=== PATIENT | female | born 1945 | race Caucasian/White ===

== ENCOUNTER → 2016-11-28 | Outpatient (CLI) | payer MEDICARE ==
--- NOTE | 2016-11-28 17:38 | KCIC ---
DATE: 11/28/2016. EXAM: MAMMO YOSELYN SCREENING BILATERAL. HISTORY: Routine mammographic screening. COMPARISON: 11/24/2015, 11/10/2014, 10/25/2013. This study was interpreted with the benefit of Computerized Aided Detection (CAD). FINDINGS: The breast parenchyma is primarily fatty replaced. Breast parenchyma level density A.. There are no suspicious masses, microcalcifications or architectural distortion. Scattered calcifications are benign. The parenchymal pattern is stable. BI-RADS CATEGORY: 2 BENIGN FINDING(S). RECOMMENDED FOLLOW-UP: 12M 12 MONTH FOLLOW-UP. PQRS compliance statement: Patient information was entered into a reminder system with a target due date 12/29/2017 for the next mammogram. Mammography is a sensitive method for finding small breast cancers, but it does not detect them all and is not a substitute for careful clinical examination. A negative mammogram does not negate a clinically suspicious finding and should not result in delay in biopsying a clinically suspicious abnormality. "Our facility is accredited by the [employer] Mammography Program."
== END | disposition home or self-care (01) ==
LOC: KCIC MAMMO 15:52
PROVIDERS: ATTEND Family Medicine
DX: Z12.31 Encounter for screening mammogram for malignant neoplasm of breast (principal)
CPT/HCPCS: 77063; G0202; 77067

== ENCOUNTER → 2017-12-01 | Outpatient (CLI) | payer MEDICARE ==
--- NOTE | 2017-12-02 14:17 | KCIC ---
3d digital tomography Bilateral History: Routine screening Technique: Bilateral 3d digital tomographic views were obtained with [employer] Karen and reviewed on a [employer] workstation. In addition, CAD - computer aided detection was utilized. Comparison: November 28, 2016. Findings: Breast Tissue Density B : The breast tissue is composed of mixed fatty and fibroglandular tissue. There are no suspicious masses, microcalcifications or areas of architectural distortion. Impression: No suspicious findings. BI-RADS Category 1: Negative. Normal interval followup. The patient will receive a letter with the results in the mail. A mammogram does not have 100% sensitivity and therefore a negative imaging study should not delay further work up of a suspicious abnormality. Patient information is entered into the [facility] reminder system using Echolocation with a target due date for the next screening mammogram. The patient will receive a reminder. "Our facility is accredited by the [employer] Mammography Program." Electronically signed by: Josh Nye III, MD (12/02/2017 2:14 PM) [facility]
== END | disposition home or self-care (01) ==
LOC: KCIC MAMMO 14:22
PROVIDERS: ATTEND Family Medicine
DX: Z12.31 Encounter for screening mammogram for malignant neoplasm of breast (principal)
CPT/HCPCS: 77063; 77067

== ENCOUNTER → 2018-03-12 | Outpatient (CLI) | payer MEDICARE ==
[~2018-03-12] MED LIST: ASCO500C9 PO; ASPI-630 PO; B CO1TAB10 PO; CALC-31 PO; CHOL10003 PO; CINN500C2 PO; HYDR12.58 PO; LEVO75TA PO; MAGN400C PO; MULT1TAB52 PO; NIAC500T PO; OMEG1CAP38 PO; OMEP20CA10 PO; PARO40TA3 PO; TRAM50TA PO
[2018-03-12 13:53] LABS: BASO # 0.1 x10^3/uL (0.0-0.2); BASO % 1 % (0-3); EOS # 0.2 x10^3/uL (0.0-0.7); EOS % 3 % (0-3); HEMATOCRIT 34.1 % (36.0-47.0); HEMOGLOBIN 11.1 g/dL (12.0-15.5); LYMPH # 1.5 x10^3/uL (1.0-4.8); LYMPH % 18 % (24-48); MEAN CORPUSCULAR HEMOGLOBIN 24 pg (25-35); MEAN CORPUSCULAR HGB CONC 33 g/dL (31-37); MEAN CORPUSCULAR VOLUME 75 fL (79-100); MONO # 0.9 x10^3/uL (0.0-1.1); MONO % 11 % (0-9); NEUT # 5.7 x10^3uL (1.8-7.7); NEUT % 67 % (31-73); PLATELET COUNT 313 x10^3/uL (140-400); RED BLOOD COUNT 4.54 x10^6/uL (3.50-5.40); RED CELL DISTRIBUTION WIDTH 16.7 % (11.5-14.5); WHITE BLOOD COUNT 8.4 x10^3/uL (4.0-11.0)
[2018-03-12 14:07] LABS: ALBUMIN 3.7 g/dL (3.4-5.0); GFR 54.7; POTASSIUM 4.2 mmol/L (3.5-5.1)
--- NOTE | 2018-03-12 16:39 | RAD ---
Chest radiograph 03/12/2018 1:59 PM INDICATION: Preoperative evaluation for hernia surgery. COMPARISON: None available TECHNIQUE: Frontal and lateral views of the chest are provided. FINDINGS: The cardiomediastinal silhouette is within normal limits. There are no pleural effusions. There is no pulmonary vascular congestion. There is no pneumothorax. The lungs are clear. No significant osseous abnormality is identified. Cholecystectomy clips are identified in the right upper quadrant of the abdomen. IMPRESSION: No acute cardiopulmonary process. Electronically signed by: Jana Resendez MD (03/12/2018 4:35 PM) [facility]
--- NOTE | 2018-03-13 11:56 | NUR ---
FAXED PRE - OP TEST REPORTS TO 'S OFFICE FOR REVIEW AND RECEIVED TRANSMITTAL CONFIRMATION.
== END | disposition home or self-care (01) ==
LOC: SURGPAT 13:18
PROVIDERS: ATTEND Surgery
DX: Z01.818 Encounter for other preprocedural examination (principal); K43.9 Ventral hernia without obstruction or gangrene; I10 Essential (primary) hypertension
CPT/HCPCS: 36415; 71046; 80048; 82040; 85025

== ENCOUNTER 2018-03-16 09:42 | Day surgery (SDC) | payer MEDICARE ==
[~2018-03-16] VITALS: Ht 154.9 cm; Wt 73.9 kg
[~2018-03-16 09:42] MED LIST changes: +DEXAMETHASONE SOD PHOS 20 MG/5 ML VIAL. ONE; +IV RINGERS,LACTATED 1000ML 1,000 ML IV SCH; +LIDOCAINE 1% PF 2 ML VIAL. ID PRN; +LIDOCAINE 2% PF Vial for OR 5 ML VIAL. ONE; -MAGN400C PO; -OMEP20CA10 PO; +OMEP20CA9 PO; +ONDANSETRON PF 4 MG/2 ML VIAL. IV PRN; +ONDANSETRON PF 4 MG/2 ML VIAL. ONE; +PROCHLORPERAZINE 10 MG/2 ML VIAL. IV PRN; +PROPOFOL 20 ML IV ONE; +ROCURONIUM 50 MG/5 ML VIAL. ONE; -TRAM50TA PO; +fentaNYL PF VIAL 100 MCG/2 ML VIAL IV PRN; +fentaNYL PF VIAL 100 MCG/2 ML VIAL ONE
[2018-03-16] MEDS ORDERED: SUCCINYLCHOLINE 200 MG/10 ML VIAL. ONE (11:12)
[2018-03-16] MEDS ORDERED: NEOSTIGMINE 10 MG/10 ML VIAL. ONE ×2 (11:20→13:03)
[2018-03-16] MEDS ORDERED: BUPIVAC MPF-EPI 0.5%-1:200000 30 ML VIAL. ONE (11:46)
[2018-03-16] MEDS ORDERED: GLYCOPYRROLATE 1 MG/5 ML VIAL. ONE ×2 (12:19→12:20)
[2018-03-16] MEDS ORDERED: SEVOFLURANE 61 TO 120 MINUTES. IH ONE (13:20)
[2018-03-16] MEDS ORDERED: fentaNYL PF VIAL 100 MCG/2 ML VIAL ONE (13:31)
--- NOTE | 2018-03-16 13:42 | DISCH ---
DISCHARGE INSTRUCTIONS Condition on Discharge Condition on Discharge: Stable Activity After Discharge Activity Instructions for Disc: Activity as tolerated, Avoid exertion Lifting Instructions after Dis: No heavy lifting Driving Instructions after Dis: Do not drive (3-4 days) Diet after Discharge Diet after Discharge: Regular Wound Incision Care Wound/Incision Care: Ice to area for comfort Other wound/incision instructi: june shower Friday Follow-Up Follow up with: Julius next week LUIS A ROSA MD Mar 16, 2018 13:42
[2018-03-16] MEDS ORDERED: MEPERIDINE PF 25 MG/ML VIAL. ONE (14:03)
[2018-03-16] MEDS: MEPERIDINE PF 25 MG/ML VIAL. IV PRN ×2 (14:07→14:20)
[2018-03-16] MEDS: fentaNYL PF VIAL 100 MCG/2 ML VIAL IV PRN ×2 (14:31→15:33)
[2018-03-16] MEDS ORDERED: TRAM50TA PO (15:23)
[2018-03-16 15:45] VITALS: BP 158/71
--- NOTE | 2018-03-16 16:44 | PDOC ---
BRIEF OPERATIVE NOTE Date: Mar 16, 2018 Pre-Op Diagnosis ventral incisional hernia Post-Op Diagnosis same Procedure Performed primary repair, TIFFANIE Surgeon Julius Wire Mill Operator Carmen Weber Anesthesia Type: General Blood Loss 50cc IV Fluid 1200cc Findings ventral hernia Complications none Operative Note # [id number] LUIS A ROSA MD Mar 16, 2018 16:43
--- NOTE | 2018-03-16 17:12 | RAD ---
Supine abdomen. HISTORY: Hernia repair, postop Supine view was taken of the abdomen. There are clips from a cholecystectomy. Bowel pattern is normal. An opaque foreign body is not identified on the image. Mild hypertrophic change in the lumbar spine. There is possible at extraperitoneal gas in the pelvis which could related to surgery. IMPRESSION: 1. No bowel obstruction or acute finding in the abdomen. 2. No opaque foreign body noted. Electronically signed by: Keyon Sheets MD (03/16/2018 5:08 PM) [facility]
--- NOTE | 2018-03-16 18:00 | OP ---
DATE OF SURGERY: 03/16/2018 PREOPERATIVE DIAGNOSIS: Recurrent ventral hernia. POSTOPERATIVE DIAGNOSIS: Recurrent ventral hernia. PROCEDURE: Primary repair and lysis of adhesions. SURGEON: Rl Rosa MD DYE TUB TENDER: Carmen Weber. ANESTHESIA: General endotracheal. ESTIMATED BLOOD LOSS: 50. INTRAVENOUS FLUID: 1200. DESCRIPTION OF PROCEDURE: The patient brought to the operating suite, given a general endotracheal anesthetic and the abdomen prepped and draped in usual sterile fashion. The old midline incisional scar was excised along with the umbilicus. The anterior wall fascia was opened in the midline encountering previously placed individual Prolene suture material. An area of defect in the right upper abdomen was identified, contents reduced, area repaired with 0 Vicryl suture. When a correct sponge count had been obtained, the midline incision was closed in running fashion with a #1 looped PDS suture tied in the middle. Subcutaneous approximated with 3-0 Vicryl, skin closed with subcuticular 4-0 Monocryl. Sterile dressing applied. Postoperative foreign body film negative for unexplained foreign body. The patient awakened from her anesthetic and taken to the recovery room in satisfactory condition. RL ROSA MD DR: PREET/astrid JOB#: [id number] / [id number]
[2018-03-16] MEDS ORDERED: NIACIN ER 500 MG TABLET.ER PO SCH (21:00)
[2018-03-17] MEDS ORDERED: LEVOTHYROXINE 75 MCG TABLET PO SCH (07:00)
[2018-03-17] MEDS ORDERED: PANTOPRAZOLE 40 MG TABLET.DR. PO SCH (07:30)
[2018-03-17] MEDS ORDERED: ASPIRIN CHEWABLE 81 MG TABLET. PO SCH (09:00)
[2018-03-17] MEDS ORDERED: ASCORBIC ACID 500 MG TABLET PO SCH (09:00)
[2018-03-17] MEDS ORDERED: OMEGA-3 FATTY ACIDS/FISH OIL 1,000 MG CAPSULE. PO SCH (09:00)
[2018-03-17] MEDS ORDERED: VITAMIN B COMPLEX TABLET. PO SCH (09:00)
[2018-03-17] MEDS ORDERED: PARoxetine 20 MG TABLET PO SCH (09:00)
[2018-03-17] MEDS ORDERED: CHOLECALCIFEROL (VITAMIN D3) 1,000 UNIT TABLET PO SCH (09:00)
[2018-03-17] MEDS ORDERED: hydroCHLOROthiazide 12.5 MG CAPSULE PO SCH (09:00)
[2018-03-17] MEDS ORDERED: NON FORMULARY ITEM (Cinnamon Bark (Cinnamon) 500 MG) PO SCH (09:00)
[2018-03-17] MEDS ORDERED: MULTIVITAMIN with MINERAL TABLET. PO SCH (09:00)
[2018-03-17] MEDS ORDERED: CALCIUM CARB/VIT D3 500/200 TABLET. PO SCH (09:00)
== END 2018-03-16 15:57 | disposition home or self-care (01) ==
LOC: SURG 09:42
PROVIDERS: ATTEND Surgery
DX: K43.2 Incisional hernia without obstruction or gangrene (principal); I10 Essential (primary) hypertension; E03.9 Hypothyroidism, unspecified; E78.5 Hyperlipidemia, unspecified; K21.9 Gastro-esophageal reflux disease without esophagitis; F32.9 Major depressive disorder, single episode, unspecified; Z79.899 Other long term (current) drug therapy; Z79.82 Long term (current) use of aspirin; Z90.49 Acquired absence of other specified parts of digestive tract; Z90.721 Acquired absence of ovaries, unilateral; Z86.010 Personal history of colon polyps; Z98.890 Other specified postprocedural states; Z82.49 Family history of ischemic heart disease and other diseases of the circulatory system; Z83.6 Family history of other diseases of the respiratory system; Z83.3 Family history of diabetes mellitus; Z81.8 Family history of other mental and behavioral disorders; Z72.89 Other problems related to lifestyle; Z88.5 Allergy status to narcotic agent; Z88.8 Allergy status to other drugs, medicaments and biological substances
CPT/HCPCS: 49565; 74018; A7015; J0330; J0696; J1100; J2001; J2175; J2405; J2704; J2710; J3010; J3490; J7120

== ENCOUNTER → 2018-04-22 | Day surgery (SDC) | payer MEDICARE ==
[~2018-04-22] MED LIST changes: -DEXAMETHASONE SOD PHOS 20 MG/5 ML VIAL. ONE; -LIDOCAINE 1% PF 2 ML VIAL. ID PRN; -LIDOCAINE 2% PF Vial for OR 5 ML VIAL. ONE; +MAGN400C PO; +OMEP20CA10 PO; -OMEP20CA9 PO; -ONDANSETRON PF 4 MG/2 ML VIAL. ONE; -ROCURONIUM 50 MG/5 ML VIAL. ONE; +TRAM50TA PO; -fentaNYL PF VIAL 100 MCG/2 ML VIAL ONE
[2018-04-22 09:40] VITALS: BP 127/64
== END | disposition home or self-care (01) ==
LOC: ENDOS 07:55
PROVIDERS: ATTEND Internal Medicine Gastroenterology
DX: Z12.11 Encounter for screening for malignant neoplasm of colon (principal); K57.30 Diverticulosis of large intestine without perforation or abscess without bleeding; K64.0 First degree hemorrhoids; Z86.010 Personal history of colon polyps; F32.9 Major depressive disorder, single episode, unspecified; E03.9 Hypothyroidism, unspecified; K21.9 Gastro-esophageal reflux disease without esophagitis; E78.00 Pure hypercholesterolemia, unspecified; E11.9 Type 2 diabetes mellitus without complications; G47.30 Sleep apnea, unspecified; M19.90 Unspecified osteoarthritis, unspecified site; Z88.5 Allergy status to narcotic agent; Z88.8 Allergy status to other drugs, medicaments and biological substances; Z83.3 Family history of diabetes mellitus; Z82.49 Family history of ischemic heart disease and other diseases of the circulatory system; Z81.8 Family history of other mental and behavioral disorders; Z72.89 Other problems related to lifestyle; Z79.899 Other long term (current) drug therapy; Z90.49 Acquired absence of other specified parts of digestive tract; Z98.51 Tubal ligation status; Z90.721 Acquired absence of ovaries, unilateral; Z98.890 Other specified postprocedural states
CPT/HCPCS: G0105; J2704; 45378

== ENCOUNTER → 2018-12-02 | Outpatient (CLI) | payer MEDICARE ==
[2018-04-22 09:40] VITALS: BP 127/64
[~2018-12-02] MED LIST changes: +CALC600T4 PO; +CYAN-25 PO; +GLUC-12 PO; -IV RINGERS,LACTATED 1000ML 1,000 ML IV SCH; -ONDANSETRON PF 4 MG/2 ML VIAL. IV PRN; -PROCHLORPERAZINE 10 MG/2 ML VIAL. IV PRN; -PROPOFOL 20 ML IV ONE; -fentaNYL PF VIAL 100 MCG/2 ML VIAL IV PRN
--- NOTE | 2018-12-02 12:10 | KCIC ---
Bilateral digital screening mammograms with 3-D tomosynthesis: Reason for examination: Routine screening. Comparison is made to previous studies dated 12/01/2017 and 11/28/2016. Bilateral mammograms in CC and oblique projections were obtained with 2-D imaging and 3-D tomosynthesis imaging on a Siemens Inspiration unit and reviewed on the workstation. Interpretation was made with the benefit of CAD. The skin and nipples show no abnormalities. No abnormal axillary lymph nodes are seen. The breast parenchyma is predominantly fatty. (Breast density: Category A.) There continues to be a small nodule probably representing an intramammary lymph node posteriorly at the 3:00 C position of the left breast. There are no new dominant masses, suspicious calcifications or architectural distortion. Benign calcifications are present. Impression: No evidence of malignancy. Recommend routine screening. BI-RAD Category 2: Benign. "Our facility is accredited by the [employer] Mammography Program." This patient's information has been entered into a reminder system for the patient to be notified with the results of her examination and a target date for the next mammogram. Electronically signed by: Caterina Ryan MD (12/02/2018 12:07 PM) [facility]
== END | disposition home or self-care (01) ==
LOC: KCIC MAMMO 08:03
PROVIDERS: ATTEND Family Medicine
DX: Z12.31 Encounter for screening mammogram for malignant neoplasm of breast (principal); N64.89 Other specified disorders of breast
CPT/HCPCS: 77063; 77067

== ENCOUNTER → 2018-12-02 | Outpatient (CLI) | payer MEDICARE ==
[2018-04-22 09:40] VITALS: BP 127/64
[2018-12-02 09:36] LABS: BASO # 0.1 x10^3/uL (0.0-0.2); BASO % 2 % (0-3); EOS # 0.2 x10^3/uL (0.0-0.7); EOS % 3 % (0-3); HEMATOCRIT 41.7 % (36.0-47.0); LYMPH # 1.4 x10^3/uL (1.0-4.8); LYMPH % 19 % (24-48); MEAN CORPUSCULAR HEMOGLOBIN 28 pg (25-35); MEAN CORPUSCULAR HGB CONC 34 g/dL (31-37); MEAN CORPUSCULAR VOLUME 84 fL (79-100); MONO # 0.7 x10^3/uL (0.0-1.1); MONO % 9 % (0-9); NEUT # 4.9 x10^3/uL (1.8-7.7); NEUT % 67 % (31-73); PLATELET COUNT 295 x10^3/uL (140-400); RED BLOOD COUNT 4.96 x10^6/uL (3.50-5.40); RED CELL DISTRIBUTION WIDTH 15.1 % (11.5-14.5); WHITE BLOOD COUNT 7.3 x10^3/uL (4.0-11.0)
[2018-12-02 09:47] LABS: ALBUMIN 4.1 g/dL (3.4-5.0); CALCIUM 8.9 mg/dL (8.5-10.1); GFR 54.5; POTASSIUM 4.8 mmol/L (3.5-5.1)
== END | disposition home or self-care (01) ==
LOC: SURGPAT 08:46
PROVIDERS: ATTEND Surgery
DX: Z01.818 Encounter for other preprocedural examination (principal); K43.2 Incisional hernia without obstruction or gangrene; Z88.8 Allergy status to other drugs, medicaments and biological substances
CPT/HCPCS: 36415; 80048; 82040; 85025

== ENCOUNTER 2018-12-09 07:56 | Inpatient (IN) | payer MEDICARE ==
[2018-12-09] VITALS (9 sets, daily range): BP systolic 118–147; BP diastolic 33–70
[~2018-12-09] VITALS: Ht 154.9 cm; Wt 74.5 kg
[~2018-12-09 07:56] MED LIST changes: +BUPIVACAINE-EPI 0.5%-1:200000 MPF 30 ML VIAL. INJ ONE; +LIDOCAINE 1% PF 2 ML VIAL. ID PRN; +ONDANSETRON PF 4 MG/2 ML VIAL. IV PRN; +PROCHLORPERAZINE 10 MG/2 ML VIAL. IV PRN; +fentaNYL PF VIAL 100 MCG/2 ML VIAL IV PRN
[2018-12-09] MEDS ORDERED: ONDANSETRON PF 4 MG/2 ML VIAL. ONE (08:38)
[2018-12-09] MEDS ORDERED: PROPOFOL 20 ML IV ONE (08:38)
[2018-12-09] MEDS ORDERED: DEXAMETHASONE SOD PHOS 4 MG/ML VIAL ONE (08:38)
[2018-12-09] MEDS ORDERED: LIDOCAINE 2% PF 5 ML VIAL. ONE (08:38)
[2018-12-09] MEDS ORDERED: fentaNYL PF VIAL 100 MCG/2 ML VIAL ONE ×2 (08:39→11:14)
[2018-12-09] MEDS ORDERED: ROCURONIUM 50 MG/5 ML VIAL. ONE (08:39)
[2018-12-09] MEDS: IV RINGERS,LACTATED 1000ML 1,000 ML IV SCH ×2 (08:46→12:45)
[2018-12-09] MEDS ORDERED: BUPIVACAINE MPF 0.5% 30 ML VIAL. IJ ONE (10:30)
[2018-12-09] MEDS ORDERED: PHENYLEPHRINE in 0.9% NACL PF 1 MG/10 ML SYRINGE. IV ONE (10:37)
[2018-12-09] MEDS ORDERED: SEVOFLURANE 61 TO 120 MINUTES. IH ONE (10:52)
[2018-12-09] MEDS ORDERED: GLYCOPYRROLATE 1 MG/5 ML VIAL. ONE (11:45)
[2018-12-09] MEDS ORDERED: NEOSTIGMINE METHYLSULFATE 5 MG/5 ML SYRINGE. ONE (11:46)
[2018-12-09] MEDS ORDERED: IV NORMAL SALINE 1000ML BAG 1,000 ML IV SCH (12:19)
--- NOTE | 2018-12-09 12:25 | PDOC ---
BRIEF OPERATIVE NOTE Date: Dec 09, 2018 Pre-Op Diagnosis recurrent ventral incisional hernia Post-Op Diagnosis same Procedure Performed open primary repair with Phasix overlay TIFFANIE Surgeon Julius Anesthesia Type: General Blood Loss 50cc IV Fluid 1300cc Specimens Obtained hernia sacks and attenuated abdominal wall Findings multiple defects, two larger than the rest, abdominal adhesions Complications none LUIS A ROSA MD Dec 09, 2018 12:25
[2018-12-09] MEDS ORDERED: NALOXONE 0.4 MG/ML VIAL. IV PRN (12:30)
[2018-12-09] MEDS ORDERED: ONDANSETRON PF 4 MG/2 ML VIAL. IV PRN (12:30)
[2018-12-09] MEDS ORDERED: HYDROmorphone 2 MG/ML VIAL IV PRN (12:30)
[2018-12-09] MEDS ORDERED: oxyCODONE/APAP 5/325 1 TAB TABLET PO PRN ×2 (12:30)
[2018-12-09] MEDS ORDERED: 0.9 % SODIUM CHLORIDE 10 ML DISP.SYRIN. IV PRN (12:30)
[2018-12-09] MEDS ORDERED: diphenhydrAMINE HCL 25 MG CAPSULE PO PRN (13:00)
--- NOTE | 2018-12-09 14:30 | NUR ---
Pt arrived via bed from PACU. A&O x4, denies pain, dressing CDI, minimal drainage in DREW. IVF infusing. Frequent vitals started. Water pitcher filled. Call light within reach. Will return to monitor.
--- NOTE | 2018-12-09 15:30 | OP ---
DATE OF SURGERY: 12/09/2018 PREOPERATIVE DIAGNOSIS: Recurrent ventral incisional hernia. POSTOPERATIVE DIAGNOSIS: Recurrent ventral incisional hernia. PROCEDURE: Open primary repair with Phasix overlay. SURGEON: Rl Rosa MD ANESTHESIA: General endotracheal. ESTIMATED BLOOD LOSS: 50 mL. INTRAVENOUS FLUIDS: 1300 mL. INDICATIONS: The patient is a 73-year-old active female with previous ventral hernia repair, brought for repair of recurrence. OPERATIVE FINDINGS: There were several defects in the midline, 2 of which were larger than the rest. Abdominal adhesions of omentum to the abdominal wall were present. DESCRIPTION OF PROCEDURE: The patient brought to the operating suite, given a general endotracheal anesthetic and the abdomen prepped and draped in usual sterile fashion. The previous midline incisional scar was excised and dissection carried down to the anterior sheath. The midline closure was exposed in its entirety, demonstrating 2 large defects, one at the upper end and one near the lower end with several smaller defects in between. These were all connected by a midline incision and the attenuated abdominal wall and hernia sacs were excised. After mobilizing the omentum and bowel off the abdominal wall for adequate space to close, the incision was closed in a single layer using looped 0 PDS tied in the middle. A sheet of Phasix mesh was placed as an overlay over the repair, tacked around the periphery with 2-0 PDS sutures. A 19-Romanian round Pito drain left in the subcutaneous space for postoperative drainage, secured to the skin with a silk stitch. Skin closed loosely with peter. Sterile dressing applied. Abdominal binder placed. The patient awakened from her anesthetic and taken to the recovery room in satisfactory condition. RL ROSA MD DR: PREET/astrid JOB#: [id number] / [id number]
--- NOTE | 2018-12-09 17:24 | NUR ---
Cleared reassessments from PACU in [facility].
[2018-12-09] MEDS: POTASSIUM CL 20MEQ-0.45% NACL 1,000 ML IV SCH (18:44)
[2018-12-09] MEDS: DOCUSATE SODIUM 100 MG CAPSULE. PO SCH (20:56)
[2018-12-09] MEDS: NIACIN ER 500 MG TABLET.ER PO SCH (20:56)
[2018-12-09] MEDS ORDERED: ENOXAPARIN 40 MG/0.4 ML SYRINGE. SQ SCH (21:00)
[2018-12-10 03:00] VITALS: BP 120/61
[2018-12-10] MEDS: POTASSIUM CL 20MEQ-0.45% NACL 1,000 ML IV SCH (05:32)
[2018-12-10] MEDS ORDERED: LEVOTHYROXINE 75 MCG TABLET PO SCH (06:00)
[2018-12-10 07:00] VITALS: BP 122/58
[2018-12-10] MEDS ORDERED: PANTOPRAZOLE 40 MG TABLET.DR. PO SCH (07:30)
--- NOTE | 2018-12-10 08:59 | NUR ---
SW following for discharge planning. Chart reviewed, discussed with RN. Pt is from home with . RN advised no SW needs and anticipates pt will discharge home today (12/10/18) with self care.
[2018-12-10] MEDS ORDERED: MAGNESIUM OXIDE 400 MG TABLET PO SCH (09:00)
[2018-12-10] MEDS ORDERED: PARoxetine 20 MG TABLET PO SCH (09:00)
[2018-12-10] MEDS ORDERED: CHONDROITIN A PO SCH (09:00)
[2018-12-10] MEDS ORDERED: hydroCHLOROthiazide 12.5 MG CAPSULE PO SCH (09:00)
[2018-12-10] MEDS ORDERED: MSM PO SCH (09:00)
[2018-12-10] MEDS ORDERED: [UNRECOGNIZED DRUG - OTHER] PO SCH (09:00)
[2018-12-10] MEDS ORDERED: GLUCOSAMINE PO SCH (09:00)
[2018-12-10] MEDS: NIACIN ER 500 MG TABLET.ER PO SCH (09:12)
[2018-12-10] MEDS: DOCUSATE SODIUM 100 MG CAPSULE. PO SCH (09:13)
--- NOTE | 2018-12-10 10:52 | PDOC ---
CELENA CLAUDIO EARTH SCIENCE TECHNICIAN 12/10/18 1052: SURGICAL PROGRESS NOTE Subjective tolerating diet pain managed urinating ambulating Vital Signs Vital Signs Date Time Temp Pulse Resp B/P (MAP) Pulse Ox O2 Delivery O2 Flow Rate FiO2 12/10/18 07:00 97.5 87 16 122/58 (79) 95 Room Air 97.5 12/10/18 01:00 2.0 I&O Intake and Output 12/10/18 07:00 Intake Total 1650 ml Output Total 130 ml Balance 1520 ml IV Total 1650 ml Output Drainage Total 80 ml Estimated Blood Loss 50 ml # Voids 8 General: Alert, Cooperative Abdomen: Soft, Other (drain serosang, binder in place) Assessment/Plan s/p hernia repair plan DC home drain teaching FU friday LUIS A ROSA MD 12/10/18 1107: SURGICAL PROGRESS NOTE Assessment/Plan pt seen home today with drain CELENA CLAUDIO EARTH SCIENCE TECHNICIAN Dec 10, 2018 10:52 LUIS A ROSA MD Dec 10, 2018 11:07
[2018-12-10] MEDS ORDERED: OXYC1TAB15 PO (10:57)
--- NOTE | 2018-12-10 10:57 | DISCH ---
DISCHARGE INSTRUCTIONS Condition on Discharge Condition on Discharge: Stable Activity After Discharge Activity Instructions for Disc: Activity as tolerated, Avoid exertion Lifting Instructions after Dis: No heavy lifting Driving Instructions after Dis: Do not drive Diet after Discharge Diet after Discharge: Regular Wound Incision Care Wound/Incision Care: Ice to area for comfort, Change dressing, May get incision wet, Other, see below (wear abdominal binder, drain care as instructed ) Contacting the [facility] after DC Call your doctor for: Concerns you may have Follow-Up Follow up with: Dr forrest 12/14 at 1245, questions call [phone] CELENA CLAUDIO PERSONAL VEHICLE ADVISOR Dec 10, 2018 10:57
--- NOTE | 2018-12-10 11:10 | PDOC3 ---
Discharge Summary Visit Information Date of Admission: Dec 09, 2018 Date of Discharge: Dec 10, 2018 Admitting Diagnosis Comment: recurrent ventral incisional hernia Final Diagnosis same Brief Hospital Course Allergies Allergies Coded Allergies Type Severity Reaction Last Updated Verified Lmmdtff-Cju-Tjx Reductase Inhibitor Allergy Intermediate 12/09/18 Yes codeine Allergy Intermediate 12/09/18 Yes Vital Signs Vital Signs Date Time Temp Pulse Resp B/P (MAP) Pulse Ox O2 Delivery O2 Flow Rate FiO2 12/10/18 07:00 97.5 87 16 122/58 (79) 95 Room Air 97.5 12/10/18 01:00 2.0 Brief Hospital Course Ms. Hernandez is a 73 old female who presented with a recurrent VIH for repair. She did well and went home on her first POD to F/U in three days with DREW output Discharge Information Scheduled Ascorbic Acid (Vitamin C) 500 Mg Capsule, 500 MG PO DAILY for SUPPLEMENT, (Reported) Entered as Reported by: Annie Nina on 03/12/181319 Last Taken: Unknown Dose on 12/02/18 Last Action: HELD on 12/09/18 1255 by LUIS A ROSA Calcium Carbonate (Calcium) 600 Mg Tablet, 1,200 MG PO DAILY for supplement, (Reported) Entered as Reported by: ELIE DEJESUS on 12/02/18 0908 Last Taken: Unknown Dose on 12/02/18 Last Action: HELD on 12/09/18 1255 by LUIS A ROSA Cholecalciferol (Vitamin D3) (Vitamin D3) 1,000 Unit Tablet, 2 TAB PO DAILY for SUPPLEMENT, #30 Ref 5 (Reported) Entered as Reported by: Annie Nina on 03/12/18 132 Last Taken: Unknown Dose on 12/02/18 Last Action: HELD on 12/09/18 1255 by LUIS A ROSA Cinnamon Bark (Cinnamon) 500 Mg Capsule, 500 MG PO DAILY for SUPPLEMENT, (Reported) Entered as Reported by: Annie Nina on 03/12/18 132 Last Taken: Unknown Dose on 12/02/18 Last Action: HELD on 12/09/18 1255 by LUIS A ROSA Cyanocobalamin (Vitamin B-12) (Vitamin B-12) 1,000 Mcg Tablet, 1 TAB PO DAILY for supplement for 30 Days, #30 Ref 0 (Reported) Entered as Reported by: ELIE DEJESUS on 12/02/18 0909 Last Taken: Unknown Dose on 12/02/18 Last Action: HELD on 12/09/18 125 by LUIS A ROSA Glucosamine/Msm/Chondroitin A (Glucosamine Chondroit Msm Tab) 1 Each Tablet, 1 EACH PO DAILY for pain, (Reported) Entered as Reported by: ELIE DEJESUS on 12/02/18911 Last Taken: Unknown Dose on 12/02/18 Last Action: Converted on 12/09/181254 by LUIS A ROSA Hydrochlorothiazide (Hydrochlorothiazide Tablet) 12.5 Mg Tablet, 12.5 MG PO DAILY for DIURETIC, Ref 0 (Reported) Entered as Reported by: Annie Nina on 03/12/181319 Last Taken: Unknown Dose on 12/09/18629 Last Action: Converted on 12/09/181254 by LUIS A ROSA Levothyroxine Sodium (Synthroid) 75 Mcg Tablet, 1 TAB PO DAILY for THYROID , #30 Ref 5 (Reported) Entered as Reported by: Annie Nina on 03/12/181319 Last Taken: Unknown Dose on 12/09/18629 Last Action: Continued on 12/09/181254 by LUIS A ROSA Magnesium Oxide (Magnesium) 400 Mg Capsule, 400 MG PO DAILY for health, (Reported) Entered as Reported by: JUANPABLO REECE on 04/22/18 0817 Last Taken: Unknown Dose on 12/02/18 Last Action: Converted on 12/09/181254 by LUIS A ROSA Multivitamin (Multivitamins) 1 Each Tablet, 1 TAB PO DAILY for SUPPLEMENT, #90 Ref 3 (Reported) Entered as Reported by: Annie Nina on 03/12/181319 Last Taken: Unknown Dose on 12/02/18 Last Action: HELD on 12/09/181254 by LUIS A ROSA Niacin (Niaspan) 500 Mg Tab.er.24h, 2 TAB PO BID for CHOLESTEROL, #30 Ref 5 (Reported) Entered as Reported by: Annie Nina on 03/12/181319 Last Taken: Unknown Dose on 12/02/18 Last Action: Continued on 12/09/181254 by LUIS A ROSA Omeprazole (Omeprazole) 20 Mg Capsule.dr, 1 CAP PO DAILY for GERD, #30 Ref 5 (Reported) Entered as Reported by: Annie Nina on 03/12/181319 Last Taken: Unknown Dose on 12/09/18629 Last Action: Converted on 12/09/181254 by LUIS A ROSA Paroxetine Hcl (Paroxetine Hcl) 40 Mg Tablet, 1 TAB PO DAILY for DEPRESSION, #30 Ref 5 (Reported) Entered as Reported by: Annie Nina on 03/12/181319 Last Taken: Unknown Dose on 12/09/18629 Last Action: Converted on 12/09/181254 by LUIS A ROSA Scheduled PRN Oxycodone/Apap 5-325 (Percocet 5-325 Mg Tablet ) 1 Each Tablet, 2 TAB PO PRN Q4HRS PRN for MODERATE PAIN, SEVERE PAIN, #30 Ref 0 Prescribed by: Farzana Gilliam on 12/10/18 1057 LUIS A ROSA MD Dec 10, 2018 11:10
--- NOTE | 2018-12-10 12:00 | NUR ---
Discharge instructions and belongings reviewed with patient, verbalized understanding. Patient was escorted out via wheelchair by Tiffanie NOLAND accompanied by her .
--- NOTE | 2018-12-11 13:08 | PATHOLOGY ---
[facility] Accession Number: [id number] . 01 Material submitted: . hernia - HERNIA SAC,ATTENUATED ABOMINAL WALL . 01 Clinical history: . Recurrent ventral hernia . 02 Diagnosis: "Hernia sac, attenuated abdominal wall", removal: - Hernia sac with fibrosis and focal foreign body giant cells. (SKM/db; 12/11/2018) LBQ 12/11/2018 0946 Local . 02 Electronically signed: . Rashi Jeff MD, Pathologist NPI- [id number] . 01 Gross description: . Received in formalin labeled "Masha Hernandez, hernia sac, attenuated abdominal wall," are three segments of wrinkled, dusky navarro-mack fibromembranous tissue admixed with yellow lobulated adipose tissue measuring 10.2 x 5.1 x 1.7 cm in aggregate dimensions and ranging from 3.8 to 5.2 cm in maximum dimension. Serial sectioning reveals navarro-mack to yellow, lobular cut surfaces, with multiple foci of firm, pale white-mack fibrous tissue identified. Bookstore Manager sections are submitted in cassettes A1 through A3, to representatively include all identified areas of firm, pale white-mack fibrous tissue. (DAC; 12/10/2018) XDC/XDC 12/10/2018 0739 Local . 02 Pathologist provided ICD-10: K43.9 . 02 CPT . 129474 Specimen Comment: A courtesy copy of this report has been sent to [phone], [phone] Specimen Comment: [id number] Specimen Comment: Report sent to / DR SHIPLEY Performed at: [address], [place], [place] [id number] MD Ahsan Hunter MD Phone: [phone] Performed at: 02 [facility] [address] [place], [place] [id number] MD Severiano Mercado MD Phone: [phone]
== END 2018-12-10 12:54 | disposition home or self-care (01) | DRG 355 ==
LOC: SURG 07:56 → 4 NORTH 12:19
PROVIDERS: ADMIT Surgery; ATTEND Surgery
PROC: 0WUF0JZ Supplement Abdominal Wall with Synthetic Substitute, Open Approach (ICD-10-PCS; principal; 2018-12-09 09:30)
DX: K43.2 Incisional hernia without obstruction or gangrene (principal); K21.9 Gastro-esophageal reflux disease without esophagitis; F32.9 Major depressive disorder, single episode, unspecified; E03.9 Hypothyroidism, unspecified; E78.5 Hyperlipidemia, unspecified; I10 Essential (primary) hypertension; Z88.5 Allergy status to narcotic agent; Z88.8 Allergy status to other drugs, medicaments and biological substances; Z79.890 Hormone replacement therapy; Z79.899 Other long term (current) drug therapy; Z90.49 Acquired absence of other specified parts of digestive tract; K66.0 Peritoneal adhesions (postprocedural) (postinfection)
CPT/HCPCS: 88302; A7015; C1769; C1781; J0690; J1100; J1650; J2001; J2370; J2405; J2704; J2710; J3010; J3490; J7120; G0378

== ENCOUNTER → 2019-05-19 | Outpatient (CLI) | payer MEDICARE ==
[~2019-05-19] MED LIST changes: -BUPIVACAINE-EPI 0.5%-1:200000 MPF 30 ML VIAL. INJ ONE; +IOHEXOL 300 MG/ML 100ML VIAL. IV ONE; -LIDOCAINE 1% PF 2 ML VIAL. ID PRN; -OMEP20CA10 PO; +OMEP20CA16 PO; -ONDANSETRON PF 4 MG/2 ML VIAL. IV PRN; +OXYC1TAB15 PO; -PROCHLORPERAZINE 10 MG/2 ML VIAL. IV PRN; -fentaNYL PF VIAL 100 MCG/2 ML VIAL IV PRN
--- NOTE | 2019-05-19 09:16 | KCIC ---
EXAM: Abdomen and pelvis CT with intravenous contrast. HISTORY: Abdomen fullness. TECHNIQUE: Computed tomographic images of the abdomen and pelvis were obtained following the administration of intravenous contrast. Multiplanar reformatting was performed. *One or more of the following individualized dose reduction techniques were utilized for this examination: 1. Automated exposure control. 2. Adjustment of the mA and/or kV according to patient size. 3. Use of iterative reconstruction technique. COMPARISON: None. FINDINGS: Evaluation of the lower thorax demonstrates an 8 mm nodular opacity within the anterior right middle lobe on the initial image, partially excluded from the [id number]. There is a 3 mm nodule within the left lung base. There is no infiltrate or pleural effusion. There is a tiny hiatal hernia. The gastric wall appears thickened, a component of which is due to underdistention. There is hepatic steatosis. No suspicious hepatic lesion is seen. The gallbladder is surgically absent. The pancreas is unremarkable. There is a tiny splenule anterior to an otherwise unremarkable spleen. The adrenal glands and kidneys are unremarkable. There is a midline ventral abdominal wall hernia containing fat and segment of transverse colon and mid small bowel. There is no evidence of mechanical obstruction or incarceration. The superimposed on findings consistent with prior ventral abdominal wall hernia repair. The hernia sac measures 11.6 cm in maximum dimension and the hernia defect measures 8.0 cm in maximum dimension. There is scar tissue within the midline ventral abdominal wall due to prior surgery. There is distal colonic diverticulosis. There is no diverticulitis. There is a 2.2 cm hypodense lesion with internal soft tissue density within the uterus. The adnexal regions are unremarkable. The bladder is unremarkable. The aorta is normal in caliber. There is no lymphadenopathy. There is no suspicious osseous lesion. There is an incidental transitional lumbosacral segment. There is lumbar scoliosis and there are degenerative changes predominantly at L2-L3. This corresponds with the level of maximum scoliotic concavity. IMPRESSION: 1. Large ventral abdominal wall hernia containing fat and segments of transverse colon and small bowel. There is no evidence of mechanical obstruction or incarceration. This is along the superior aspect of a prior ventral abdominal wall hernia repair. 2. Hepatic steatosis. 3. Prominent gastric wall. In the absence of symptoms to suggest gastritis, this is likely due to relative under distention. 4. 2.2 cm lesion within the uterus. This may be due to cystic degeneration of a uterine fibroid. The possibility of a lesion associated with the endometrium is not excluded. Given the postmenopausal status of patient, a pelvic sonogram is recommended to confirm benignity. 5. Distal colonic diverticulosis. 6. Tiny hiatal hernia. 7. 8 mm anterior right middle lobe and 3 mm left lower lobe pulmonary nodules. In the absence of prior studies to assess for interval change, follow-up is recommended according to Fleischner Society criteria. Fleischner Society recommendations (Radiology 2017): Solitary solid nodule <6 mm - low-risk patient: no routine follow-up required - high-risk patient: optional CT at 12 months (particularly with suspicious nodule morphology and/or upper lobe location) Solitary solid nodule 6-8 mm - low-risk patient: CT at 6-12 months, then consider CT at 18-24 months - high risk patient: CT at 6-12 months, then if persistent CT at 18-24 months Solitary solid nodule >8 mm - consider CT at 3 months, PET/CT, or tissue sampling Multiple solid nodules <6 mm - low-risk patient: no routine follow-up required - high-risk patient: optional CT at 12 months Multiple solid nodules >6 mm - low-risk patient: CT at 3-6 months, then consider CT at 18-24 months - high risk patient: CT at 3-6 months, then if persistent CT at 18-24 months Electronically signed by: Madeleine Bailey MD (05/19/2019 9:13 AM) [facility]
== END | disposition home or self-care (01) ==
LOC: KCIC CT 08:03
PROVIDERS: ATTEND Surgery
DX: K43.9 Ventral hernia without obstruction or gangrene (principal); K76.0 Fatty (change of) liver, not elsewhere classified; K57.30 Diverticulosis of large intestine without perforation or abscess without bleeding; K44.9 Diaphragmatic hernia without obstruction or gangrene
CPT/HCPCS: 74177; Q9967

== ENCOUNTER → 2019-10-29 | Outpatient (CLI) | payer MEDICARE ==
[~2019-10-29] MED LIST changes: +CALC-157 PO; -CALC600T4 PO; +CALC600T6 PO; -IOHEXOL 300 MG/ML 100ML VIAL. IV ONE; -LEVO75TA PO; +LEVO75TA90 PO; +METF500T16 PO; +MULT-445 PO; -MULT1TAB52 PO; +magnesium carbonate PO
== END | disposition home or self-care (01) ==
LOC: LAB 14:13
PROVIDERS: ATTEND Surgery
DX: Z01.812 Encounter for preprocedural laboratory examination (principal); Z20.828 Contact with and (suspected) exposure to other viral communicable diseases; K43.2 Incisional hernia without obstruction or gangrene; Z88.5 Allergy status to narcotic agent; Z88.8 Allergy status to other drugs, medicaments and biological substances
CPT/HCPCS: U0003-CS

== ENCOUNTER → 2019-12-06 | Outpatient (CLI) | payer MEDICARE ==
[2019-11-07 15:00] VITALS: BP 125/55
--- NOTE | 2019-12-06 18:24 | KCIC ---
Bilateral digital screening mammograms: Reason for examination: Routine screening. Comparison is made to previous studies dated back to 11/10/2014. Interpretation is made with the benefit of CAD. The skin and nipples show no abnormalities. No abnormal lymph nodes are seen. The breast parenchyma is predominantly fatty. (Breast density: Category A.) There continues to be a small nodule consistent with an intramammary lymph node at the 3:00 C position of the left breast which has not changed. There are no new dominant masses, suspicious calcifications or architectural distortions. Impression: No evidence of malignancy. Recommend routine screening. BI-RADS Category 2: Benign. "Our facility is accredited by the [employer] Mammography Program." This patient's information has been entered into a reminder system for the patient to be notified with the results of her examination and a target date for the next mammogram. Electronically signed by: Caterina Ryan MD (12/06/2019 6:21 PM) [email or web address]
== END ==
LOC: KCIC MAMMO 10:44
PROVIDERS: ATTEND Family Medicine
DX: Z12.31 Encounter for screening mammogram for malignant neoplasm of breast (principal); N64.89 Other specified disorders of breast
CPT/HCPCS: 77063; 77067

== ENCOUNTER → 2020-06-26 | Outpatient (CLI) | payer MEDICARE ==
[2019-11-07 15:00] VITALS: BP 125/55
[~2020-06-26] MED LIST changes: -CALC600T6 PO; +CALC600T60 PO
--- NOTE | 2020-06-26 13:54 | KCIC ---
STUDY: MRI of the left knee without contrast INDICATION: Medial left knee pain. No known injury. COMPARISON: Left knee radiographs 06/15/2020 TECHNIQUE: Multiplanar MR imaging of the left knee performed without the use of intravenous or intra- articular contrast. FINDINGS: Menisci: Heterogeneous signal with a small adjacent cystic focus along the femoral surface of the lat eral meniscus anterior root, image 8 series 6. This is at the insertion of a transverse intermeniscal ligament and may be related to dispersion of fibers as opposed to a small tear. The rest of the late ral meniscus is unremarkable. The medial meniscus is intact. Cruciate ligaments: Intact. Collateral ligaments: Thickened and heterogeneous TCL at and extending distally by approximately 2.5 cm from its femoral origin. Adjacent soft tissue edema, image 14 series 8. The lateral collateral lig aments are intact. Tendons: No discrete tear or advanced tendinosis. Cartilage: Patellofemoral: Chondral thinning at the lower aspect of the lateral patellar facet, image 6 series 6 . No high-grade trochlear chondral loss. Lateral compartment: Chondral thinning at the posterior nonweightbearing lateral femoral condyle. Medial compartment: Chondral thinning at the proximal nonweightbearing medial femoral condyle. Bones: No acute fracture or focally aggressive marrow signal abnormality. Miscellaneous: Only a small amount of joint fluid. Tiny Cherry's cyst. IMPRESSION: 1. Thickened and heterogeneous TCL at and extending a few centimeters distal to its femoral origin w ith adjacent soft tissue edema. No trauma is reported but the appearance is suggestive of a grade 1/b orderline grade 2 sprain. No ligamentous mineralization is apparent on this exam or the comparison ra diographs to suggest a calcific periarthritis. 2. No discrete meniscal tear. The cruciate ligaments are intact. 3. Scattered chondral thinning without a full-thickness chondral defect. Electronically signed by: LYDIA ZHANG MD (06/26/2020 1:52 PM) [id number]
== END ==
LOC: KCIC MRI 10:29
PROVIDERS: ATTEND Orthopaedic Surgery
DX: M25.562 Pain in left knee (principal)
CPT/HCPCS: 73721

== ENCOUNTER → 2020-12-12 | Outpatient (CLI) | payer MEDICARE ==
[2019-11-07 15:00] VITALS: BP 125/55
--- NOTE | 2020-12-13 08:22 | KCIC ---
INDICATION : Routine Screening. COMPARISON: [facility] including November 2019 TECHNIQUE: Standard mammogram screening views of the bilateral breasts were obtained with 3D tomosynt hesis. CAD was utilized. FINDINGS: The breasts are scattered density. No definite suspicious mass. IMPRESSION: BI-RADS Category 1: Negative. The patient was placed into the recall system with a suggested recall date for follow up imaging. Mammography is the most sensitive method for finding small breast cancers, but it does not detect the m all and is not a substitute for careful clinical examination. A negative mammogram does not negate a clinically suspicious finding and should not result in delay in biopsying a clinically suspicious abnormality. Electronically signed by: Derrell Nova MD (12/13/2020 8:19 AM) [id number]
== END ==
LOC: KCIC MAMMO 09:49
PROVIDERS: ATTEND Family Medicine
DX: Z12.31 Encounter for screening mammogram for malignant neoplasm of breast (principal)
CPT/HCPCS: 77063; 77067